=== PATIENT | male | born 1970 | race Caucasian/White ===

== ENCOUNTER 2019-03-24 19:42 | Observation (INO) ==
[2019-03-24 21:53] LABS: ALLEN TEST YES; BE 2.3 mmoll (-3.0-3.0); BLOOD TYPE ARTERIAL; HCO3-(ACT) 26.6 mmoll (20.0-26.0); METHB 1.4 % (0.0-1.5); O2HB 94.9 % (95.0-99.0); PCO2(98.6) 39 mmHg (35-45); PO2(98.6) 75 mmHg (60-100); SAMPLE BLOOD; SAO2 98.1 % (95.0-100.0); THB 16.5 g/dL (11.5-17.4); pH(98.6) 7.44 (7.35-7.45)
[2019-03-24 21:54] LABS: MODALITY ROOM AIR
--- NOTE | 2019-03-24 21:56 | Diag Imaging Result Doc PS360 ---
EXAM: CT HEAD W/O CONTRAST HISTORY: AMS TECHNIQUE: CT head without contrast COMPARISON: None. FINDINGS: No parenchymal hemorrhage. No epidural or subdural hematoma. No subarachnoid hemorrhage. Old right basal ganglia lacunar infarct versus cyst No mass identified on this noncontrasted exam. No hydrocephalus. No sinus opacification. IMPRESSION: No hemorrhage. No acute abnormality. This exam was performed using automated exposure control, adjustment of mA or kV according to patient size, and/or use of iterative reconstruction technique. Electronically signed by Aleksey Beckwith 03/24/2019 9:54 PM
[2019-03-24 22:02] LABS: AGAP 13; ALB/GLOB RATIO 1.7; ALBUMIN 4.8 g/dL (3.5-5.0); ALKALINE PHOSPHATASE 72 U/L (32-122); BUN 15 mg/dL (8-22); CALCIUM 9.7 mg/dL (8.8-10.2); CHLORIDE 98 mmol/L (98-107); COSMO 279; CREATININE 0.7 mg/dL (0.7-1.2); ESTIMATED GFR > 60; GLUCOSE 180 mg/dL (70-104); GOT 23 U/L (10-34); GPT 24 U/L (10-44); SODIUM 137 mmol/L (136-145); TCO2 26 mmol/L (25-35); TOTAL BILIRUBIN 0.68 mg/dL (0.20-1.00); TOTAL PROTEIN 7.6 g/dL (6.3-8.3)
[2019-03-24 22:30] LABS: BASO# 0.04 X1000 (0.0-0.2); BASO% 0.6 % (0.0-0.8); EOS# 0.16 X1000 (0.0-0.7); EOS% 2.4 % (0.0-10.0); HEMATOCRIT 47.1 % (42.0-52.0); HEMOGLOBIN 16.6 g/dL (14.0-18.0); LYMPH# 2.26 X1000 (1.2-3.4); LYMPH% 33.4 % (20.5-51.1); MCH 26.3 PG (27-31); MCHC 35.2 g/dL (33-37); MCV 74.6 FL (81-99); MONO# 0.85 X1000 (0.11-0.59); MONO% 12.6 % (1.7-9.3); MPV 10.7 FL (7.4-10.4); NEUT# 3.46 X1000 (1.4-6.5); PLT 168 X1000 (130-400); RBC 6.31 XMIL (4.7-6.1); RDW 13.4 % (11.5-14.5); WBC 6.77 X1000 (4.8-10.8)
[2019-03-24 22:37] LABS: URINE SOURCE CLEAN CATCH
[2019-03-24 22:41] LABS: BILIRUBIN URINE NEGATIVE (NEGATIVE); BLOOD URINE NEGATIVE (NEGATIVE); COLOR YELLOW; GLUCOSE URINE TRACE mg/dL (NEGATIVE); KETONE URINE 40 mg/dL (NEGATIVE); LEUKOCYTES URINE SMALL (NEGATIVE); NITRITE URINE NEGATIVE (NEGATIVE); PROTEIN URINE NEGATIVE (NEGATIVE); SP GRAVITY URINE 1.019; TURBIDITY URINE CLEAR (CLEAR); UROBILINOGEN URINE NORMAL (NORMAL)
[2019-03-24 22:42] LABS: UR EPITHELIAL CELLS <10 /HPF (<10); URINE BACTERIA NEGATIVE /HPF; URINE RBC <10 /HPF (<10)
[2019-03-24 22:59] LABS: UR AMPHETAMINES QUAL NONE DETECTED (NONE DETECT); UR BARBITUATES QUAL NONE DETECTED (NONE DETECT); UR BENZODIAZEPIN QUAL NONE DETECTED (NONE DETECT); UR CANNABINOIDS QUAL NONE DETECTED (NONE DETECT); UR COCAINE QUAL NONE DETECTED (NONE DETECT); UR METHADONE QUAL NONE DETECTED (NONE DETECT); UR OPIATES QUAL NONE DETECTED (NONE DETECT); UR OXYCODONE QUAL NONE DETECTED (NONE DETECT); UR PCP QUAL NONE DETECTED (NONE DETECT)
[2019-03-24] MEDS ORDERED: TYLENOL PO ONE (23:42)
--- NOTE | 2019-03-25 01:30 | PROVIDER DOCUMENTATION ---
This chart was entered by Leslie Bradshaw Scribe, acting as scribe for Juliana Paredes MD. HPI-Chest Pain - General Chief Complaint: Chest Pain Stated Complaint: CHEST PAIN/HISTORY OF CHF Time Seen by Provider: 03/24/19 20:20 Source: patient Allergies/Adverse Reactions: Patient Allergies Allergy/AdvReac Type Severity Reaction Status Date / Time CHERELLE Inhibitors Allergy Severe ANAPHYLAXIS Verified 01/16/17 13:46 Home Medications: Home Medication List Medication Instructions Recorded Confirmed Last Taken Type Carvedilol [Coreg] 50 mg PO BID 09/14/13 03/24/19 01/18/17 08:00 History 50 Furosemide [Lasix] 40 mg PO BID PRN 09/14/13 01/18/17 Unknown History Metformin [Glucophage] 1,000 mg PO BID CC 09/14/13 03/24/19 01/17/17 20:00 Hist ory 500 [place]-3 Fatty Acids [Fish Oil] 2,000 mg PO DAILY 09/14/13 03/24/19 01/17/17 20:00 History 2000 Omeprazole [Prilosec] 20 mg PO DAILY 09/14/13 03/24/19 01/17/17 20:00 History 20 Simvastatin [Zocor] 20 mg PO DAILY 09/14/13 01/18/17 01/17/17 20:00 History 20 Valsartan/Hydrochlorothiazide 1 each PO DAILY 09/14/13 03/24/19 01/17/17 08:00 History [Diovan Hct 160-12.5 mg Tab] 1 Losartan/Hydrochlorothiazide 1 each PO QAM #30 tablet 04/10/16 03/24/19 Unknown Rx [Hyzaar 100/25 Tablet] Dapagliflozin Propanediol [Farxiga] 10 mg PO DAILY 01/16/17 01/18/17 01/17/17 08:00 History 10 Multivitamin with Minerals 1 each PO DAILY 01/16/17 03/24/19 01/17/17 08:00 History [Multiple Vitamin] 1 Paroxetine [Paxil] 20 mg PO DAILY 01/16/17 01/18/17 01/17/17 08:00 History 20 Hydrocodone/Acetaminophen [[place] 1 tab PO Q4H PRN PRN 01/18/17 01/18/17 01/17/17 17:00 History 10-325 Tablet] 1 Guaifenesin/Codeine [Robitussin-AC] 5 ml PO Q4H PRN 7 Days #1 [facility] [place]/25/17 Unknown Rx Aspirin 325 mg PO DAILY 03/24/19 03/24/19 Unknown History Glipizide [Glucotrol] 10 mg PO BID 03/24/19 03/24/19 Unknown History Lovastatin 40 mg PO DAILY 03/24/19 03/24/19 Unknown History - History of Present Illness-CP Nature of Presenting Problem: pt is a 48 yr old male presenting with complaint of elevated blood pressure, substernal chest pain, dizziness, shortness of breath and headache. pt reports he began with pounding headache this afternoon, checked blood pressure and noted it was elevated. pt rested/relaxed and began having chest pain, shortness of breath, blood pressure more elevated when checked. pt denies nausea/vomiting. pt does report recent (2weeks) diet and med change,pt on strict 800 calorie and low carb diet and also now taking Glipizide along with his Metformin and BP medications. pt also reports 7/8lb weight gain in 24hrs Location: reports: substernal Chest Pain Radiation: reports: no radiation Quality of Pain: reports: pressure Severity in ED: mild Onset/Duration: this afternoon Timing: intermittent Context/Activities at Onset: reports: light activity Modifying Factors: improves with: nothing Associated Symptoms: reports: dizziness, fatigue, shortness of breath. denies: nausea, vomiting Nitro Today/Relief: no nitro taken today Aspirin Treatment Today: 325 mg x 1, provided at home Similar Symptoms Previously?: Yes Recently Seen Here or By Another Healthcare Provider: Yes Review of Systems - Adult - REVIEW OF SYSTEMS - ADULT Constitutional: reports: fatique Eyes: denies: blurred vision, double vision Ears, Nose, Mouth & Throat: reports: ear pain (throbbing). denies: sinus problem, throat pain Cardiovascular: reports: chest pain, palpitations (hx of PVCs). denies: syncope Respiratory: reports: shortness of breath. denies: cough Gastrointestinal: denies: abdominal pain, nausea, vomiting Genitourinary: denies: dysuria, frequency, flank pain Musculoskeletal: denies: back pain, joint pain, neck pain Integumentary: reports: no symptoms reported Neurological: reports: dizziness/vertigo, headache/migraines. denies: numbness, slurred speech, syncope, tremors Psychiatric: reports: no symptoms reported Endocrine: reports: no symptoms reported Hematologic/Lymphatic: reports: no symptoms reported Allergic/Immunologic: reports: no symptoms reported All Other Systems: Reviewed and Negative Past History - Adult - PAST MEDICAL HISTORY-ADULT Review of Records: reports: Old Records Reviewed, Nursing Assessment Review, Medications Reviewed, Social history reviewed & non-contributory. Major Childhood Illnesses: reports: denies history Cardiovascular: reports: CHF, HTN, hyperlipidemia Respiratory: reports: asthma, sleep apnea Gastrointestinal: reports: GERD Obstetrical/Gynecological: reports: denies history Genitourinary: reports: denies history Musculoskeletal: reports: denies history Neurological: reports: denies history Endocrine/Immune: reports: Diabetes Other Conditions: reports: denies history - PRIOR SURGERIES/PROCEDURES Surgical/Procedure History: reports: none - IMMUNIZATION STATUS Childhood Immunizations: UTD Flu Vaccine: See Nurse Assessment - FAMILY HISTORY Family History: reviewed, not pertinent - SOCIAL HISTORY Smoking: denies Substance Use: denies Living Situation: family Physical Exam-General - PHYSICAL EXAM-ADULT Initial Vital Signs Reviewed: Yes - CONSTITUTIONAL General Appearance: alert, no apparent distress, obese - EYES Eyes: PERRL/EOMI - HEAD, EARS, NOSE, MOUTH & THROAT HENMT: normocephalic/atraumatic, moist mucous membranes, normal ENT inspection - NECK Neck: non-tender, full range of motion, supple, normal inspection - RESPIRATORY Respiratory: chest non-tender, lungs clear, normal breath sounds, no respiratory distress, no accessory muscle use - CARDIOVASCULAR Cardiovascular: normal peripheral pulses, regular rate, rhythm, no edema - GASTROINTESTINAL (ABDOMEN) Abdominal Exam: normal bowel sounds, non tender, soft - LYMPHATIC Lymphatic: no adenopathy - MUSCULOSKELETAL Back Exam: normal inspection, no CVA tenderness, no vertebral tenderness Extremity: normal range of motion, non-tender, normal gait, normal inspection - SKIN Integumentary: normal color, normal turgor, warm/dry - NEUROLOGIC Neurologic: grossly normal - PSYCHIATRIC Psych/Mental Status: normal mood/affect Progress - PLAN OF CARE/RESULTS Progress/Plan/Lab Results: Vital Signs - 8 hr 03/24/19 23:33 03/25/19 00:03 03/25/19 00:33 Pulse Rate 87 88 87 Respiratory Rate 13 24 16 Blood Pressure 150/114 147/106 151/102 O2 Sat by Pulse Oximetry 95 94 L 96 03/25/19 01:03 03/25/19 01:33 03/25/19 01:40 Pulse Rate 88 84 83 Respiratory Rate 23 19 17 Blood Pressure 179/116 143/108 O2 Sat by Pulse Oximetry 96 93 L 96 03/25/19 02:03 03/25/19 02:33 03/25/19 03:03 Pulse Rate 75 83 76 Respiratory Rate 15 17 20 Blood Pressure 146/109 156/107 151/111 O2 Sat by Pulse Oximetry 95 96 94 L 03/25/19 03:30 03/25/19 04:00 03/25/19 04:03 Pulse Rate 85 81 80 Respiratory Rate 15 22 18 Blood Pressure 166/97 170/99 O2 Sat by Pulse Oximetry 97 95 96 03/25/19 04:33 Pulse Rate 85 Respiratory Rate 18 Blood Pressure 155/95 O2 Sat by Pulse Oximetry 94 L Laboratory Results - last 24 hr 03/24/19 03/24/19 03/24/19 20:36 20:36 20:36 WBC 6.77 RBC 6.31 H Hgb 16.6 Hct 47.1 MCV 74.6 L MCH 26.3 L MCHC 35.2 RDW Std Deviation 13.4 Plt Count 168 MPV 10.7 H Immature Gran % (Auto) 0.0 Neut % (Auto) 51.0 Lymph % (Auto) 33.4 [place] % (Auto) 12.6 H Eos % (Auto) 2.4 Baso % (Auto) 0.6 Immature Gran # (Auto) 0.00 Neut # (Auto) 3.46 Lymph # (Auto) 2.26 [place] # (Auto) 0.85 H Eos # (Auto) 0.16 Baso # (Auto) 0.04 Specimen Type Sample Site pH pCO2 pO2 HCO3 Base Excess Oxyhemoglobin ABG O2 Sat (Calculated) ABG O2 Saturation ABG Carboxyhemoglobin ABG Methemoglobin Yoel Test A-a O2 Difference Total Hemoglobin Lactate Blood Gas Modality FiO2 % Sodium 137 Potassium 4.0 Chloride 98 Carbon Dioxide 26 Anion Gap 13 BUN 15 Creatinine 0.7 Estimated GFR/1.73 m2 > 60 BUN/Creatinine Ratio 21 Glucose 180 H POC Glucose Calculated Osmolality 279 Calcium 9.7 Total Bilirubin 0.68 AST 23 ALT 24 Alkaline Phosphatase 72 Troponin T < 0.010 Idr-C-Xavqefsrgly Pept Total Protein 7.6 Albumin 4.8 Globulin 2.8 Albumin/Globulin Ratio 1.7 Urine Source Urine Color Urine Turbidity Urine pH Ur Specific [place] Urine Protein Ur Glucose (Stick) Ur Ketones (Stick) Urine Blood Urine Nitrite Urine Bilirubin Urobilinogen Dipstick Urine Leukocytes Urine WBC (Auto) Urine RBC (Auto) U Epithel Cells (Auto) Urine Bacteria (Auto) Urine Opiates Screen Ur Oxycodone Screen Ur Methadone, Qual Ur Barbiturates Screen Ur Phencyclidine Scrn Ur Amphetamines Screen U Benzodiazepines Scrn Urine Cocaine Screen U Cannabinoids Screen 03/24/19 03/24/19 03/24/19 20:36 20:55 21:29 WBC RBC Hgb Hct MCV MCH MCHC RDW Std Deviation Plt Count MPV Immature Gran % (Auto) Neut % (Auto) Lymph % (Auto) [place] % (Auto) Eos % (Auto) Baso % (Auto) Immature Gran # (Auto) Neut # (Auto) Lymph # (Auto) [place] # (Auto) Eos # (Auto) Baso # (Auto) Specimen Type Sample Site pH pCO2 pO2 HCO3 Base Excess Oxyhemoglobin ABG O2 Sat (Calculated) ABG O2 Saturation ABG Carboxyhemoglobin ABG Methemoglobin Yoel Test A-a O2 Difference Total Hemoglobin Lactate Blood Gas Modality FiO2 % Sodium Potassium Chloride Carbon Dioxide Anion Gap BUN Creatinine Estimated GFR/1.73 m2 BUN/Creatinine Ratio Glucose POC Glucose 165 H 160 H Calculated Osmolality Calcium Total Bilirubin AST ALT Alkaline Phosphatase Troponin T Mhg-S-Yjrjgavsjrv Pept 42 Total Protein Albumin Globulin Albumin/Globulin Ratio Urine Source Urine Color Urine Turbidity Urine pH Ur Specific [place] Urine Protein Ur Glucose (Stick) Ur Ketones (Stick) Urine Blood Urine Nitrite Urine Bilirubin Urobilinogen Dipstick Urine Leukocytes Urine WBC (Auto) Urine RBC (Auto) U Epithel Cells (Auto) Urine Bacteria (Auto) Urine Opiates Screen Ur Oxycodone Screen Ur Methadone, Qual Ur Barbiturates Screen Ur Phencyclidine Scrn Ur Amphetamines Screen U Benzodiazepines Scrn Urine Cocaine Screen U Cannabinoids Screen 03/24/19 03/24/19 03/24/19 21:32 22:25 22:25 WBC RBC Hgb Hct MCV MCH MCHC RDW Std Deviation Plt Count MPV Immature Gran % (Auto) Neut % (Auto) Lymph % (Auto) [place] % (Auto) Eos % (Auto) Baso % (Auto) Immature Gran # (Auto) Neut # (Auto) Lymph # (Auto) [place] # (Auto) Eos # (Auto) Baso # (Auto) Specimen Type ARTERIAL Sample Site R RADIAL pH 7.44 pCO2 39 pO2 75 HCO3 26.6 H Base Excess 2.3 Oxyhemoglobin 94.9 L ABG O2 Sat (Calculated) 22.0 ABG O2 Saturation 98.1 ABG Carboxyhemoglobin 1.90 ABG Methemoglobin 1.4 Yoel Test YES A-a O2 Difference 26.0 Total Hemoglobin 16.5 Lactate 1.60 Blood Gas Modality ROOM AIR FiO2 % 21.0 Sodium Potassium Chloride Carbon Dioxide Anion Gap BUN Creatinine Estimated GFR/1.73 m2 BUN/Creatinine Ratio Glucose POC Glucose Calculated Osmolality Calcium Total Bilirubin AST ALT Alkaline Phosphatase Troponin T Ymv-Z-Kticfbzuhop Pept Total Protein Albumin Globulin Albumin/Globulin Ratio Urine Source CLEAN CATCH Urine Color YELLOW Urine Turbidity CLEAR Urine pH 5.0 Ur Specific [place] 1.019 Urine Protein NEGATIVE Ur Glucose (Stick) TRACE Ur Ketones (Stick) 40 A Urine Blood NEGATIVE Urine Nitrite NEGATIVE Urine Bilirubin NEGATIVE Urobilinogen Dipstick NORMAL Urine Leukocytes SMALL A Urine WBC (Auto) 10-20 A Urine RBC (Auto) <10 U Epithel Cells (Auto) <10 Urine Bacteria (Auto) NEGATIVE Urine Opiates Screen NONE DETECTED Ur Oxycodone Screen NONE DETECTED Ur Methadone, Qual NONE DETECTED Ur Barbiturates Screen NONE DETECTED Ur Phencyclidine Scrn NONE DETECTED Ur Amphetamines Screen NONE DETECTED U Benzodiazepines Scrn NONE DETECTED Urine Cocaine Screen NONE DETECTED U Cannabinoids Screen NONE DETECTED Orders Category Date Time Status Admit - [facility] Routine AdmDCTranf 03/25/19 02:42 Active Activity - Up with Assistance ORDERED Care 03/25/19 02:42 Active Apply Mechanical Device [QM] ORDERED Care 03/25/19 02:42 Active FSBS/Accucheck Result AC + HS Care 03/25/19 02:42 Active Intake and Output-Strict ORDERED Care 03/25/19 02:42 Active Vital Signs Order Q 8-HR ASSESS Care 03/25/19 02:42 Active Z-Document. for Tele Applied ORDERED Care 03/25/19 02:42 Active Diabetic Diet Diet 03/25/19 02:[address] HEAD W/O CONTRAST [CT] Stat Exams 03/24/19 21:32 Completed MRI BRAIN W/WO CONTRAST [MRI] Routine Exams 03/25/19 02:42 Ordered ABG [RESP] Routine Lab 03/24/19 21:32 Completed BASIC METABOLIC PANEL [CHEM] Routine Lab 03/26/19 06:00 Ordered BNP [PRO B-NATRIURETIC PEPTIDE] Stat Lab 03/24/19 20:36 Completed CBC WITH DIFF [HEME] Routine Lab 03/26/19 06:00 Ordered CBC WITH ELECTRONIC DIFF [HEME] Stat Lab 03/24/19 20:36 Completed COMPREHENSIVE METABOLIC PANEL [CHEM] Stat Lab 03/24/19 20:36 Completed TROPONIN T Stat Lab 03/24/19 20:36 Completed TSH Routine Lab 03/26/19 06:00 Ordered URINALYSIS W/POSS RFLX CULT [URINALYSIS] Stat Lab 03/24/19 22:25 Completed URINE CULTURE [RM] Routine Lab 03/24/19 22:53 Received URINE DRUG SCREEN Stat Lab 03/24/19 22:25 Completed Acetaminophen [Tylenol] Med 03/24/19 23:42 Discontinued 1,000 mg PO NOW ONE Acetaminophen [Tylenol] Med 03/25/19 02:42 Active 650 mg PO Q6H PRN PRN Albuterol 2.5MG/Ipratrop 0.5MG [Duoneb (A & A)] Med 03/25/19 02:42 Active 3 ml INH Q4H PRN PRN Aspirin Med 03/25/19 09:00 Active 325 mg PO DAILY Carvedilol [Coreg] Med 03/25/19 09:00 Active 50 mg PO BID Insulin Human Regular [Humulin R] Med 03/25/19 07:00 Active See Protocol SUBQ 0700,1100,1600,2100 LOVAstatin [Mevacor] Med 03/25/19 09:00 Active 40 mg PO DAILY Omeprazole [Prilosec] Med 03/25/19 07:00 Active 20 mg PO DAILY@0700 Ondansetron [Zofran] Med 03/25/19 02:42 Active 4 mg IV Q4H PRN PRN Valsartan [Diovan] Med 03/25/19 09:00 Active 160 mg PO DAILY Aerosol Treatments Routine Oth 03/25/19 02:42 Completed Aerosol Treatments Stat Oth 03/25/19 02:42 Completed Oxygen Device Routine Oth 03/25/19 02:42 Completed Telemetry [OM.EQ] Routine Oth 03/25/19 02:42 Active Carotid Ultrasound Routine Ther 03/25/19 02:42 Ordered Transfer/Admit Order [TRANSFER] Routine Transfer 03/25/19 01:25 Completed WHile in the ED patient had an acute episode where he became diaphoretic and slow to respond to questioning. Glucose at this time was 160. Taken to CT Head which was negative. Unknown cause of this. COuld be vasovagal syncope although cannot rule out TIA with his risk factors. Also with his concerning chest pain and risk factors. I feel it is likely related to his new ketogenic diet and new lo blood sugars as he states that he normally lives in the 400s. Spoke to patient about OBS admission and he agreed. SPoke to Dr Holly who accepted patient for admission. Further orders to be placed by their team. Result Diagrams: 03/24/19 20:36 03/24/19 20:36 - EKG 1 Time of EKG reading by physician:: 19:53 EKG Read and Signed by:: Juliana Paredes EKG Interpretation (*Must complete 3 of following elements*): Abnormal (pvcs) Rate: 79 Rhythm: sinus with PVCs [place]: normal QRS: normal RI Interval: normal ST Wave: normal - CT/MRI 1 CT Study: Head Impression: Normal ( EXAM: CT HEAD W/O CONTRAST HISTORY: AMS TECHNIQUE: CT head without contrast COMPARISON: None. FINDINGS: No parenchymal hemorrhage. No epidural or subdural hematoma. No subarachnoid hemorrhage. Old right basal ganglia lacunar infarct versus cyst No mass identified on this noncontrasted exam. No hydrocephalus. No sinus opacification. IMPRESSION: No hemorrhage. No acute abnormality. This exam was performed using automated exposure control, adjustment of mA or kV according to patient size, and/or use of iterative reconstruction technique. Electronically signed by Aleksey Beckwith 03/24/2019 9:54 PM 03/24/192153 Interpreting Physician: Aleksey Beckwith MD Dictated Date/Time: 03/24/192151 cc: Juliana Paredes MD; Pola Betts Jr, MD) Comparison with other Films: no prior study Departure - Departure Date of Disposition Decision: 03/25/19 Time of Disposition Decision: 01:10 DIAGNOSIS: Altered mental status, Headache, Hypertension, Chest pain Disposition: ADMITTED INPATIENT 09 Certified Medical Emergency: Emergent Condition: Stable - Critical Care Note This patient required my direct & personal management of CC.: No Attestation - Physician/ JUAN JOSE Attestation Patient care was provided by Advanced Practice Provider:: No The physician spent face to face time with patient:: Yes Advanced Practice Provider documentation review:: Supervising physician onsite and consulted in the evaluation and care of this patient. The physician did have a face to face encounter with the patient. This chart was documented by the indicated scribe, (Leslie Bradshaw Scribe) and accurately reflects the services I performed and decisions made by me, Juliana Paredes MD, as attested by the provider's signature.
--- NOTE | 2019-03-25 02:00 | HISTORY AND PHYSICAL ---
PRIMARY CARE PHYSICIAN: Dr. Betts. CHIEF COMPLAINT: Headache, difficulty getting his words out. HISTORY OF PRESENTING ILLNESS: A 48-year-old male with a history of hypertension, diabetes mellitus type 2, hyperlipidemia, who had presented to emergency department with 1 day of having a persistent headache. He states that he was also having difficulty getting his words out and he sort of zoned out at times. The patient states that he recently started ketogenic diet about 2 weeks ago and normally his blood sugars were around 400, now it is 160. He states that his blood pressure also had been elevated at home, around 180/160. The patient was evaluated in the emergency department and, due to his persistent symptoms of headache and history of difficulty getting his words out, it was thought that we will place him for observation for further evaluation and management. At the time of my examination, patient denied any fever, chills, chest pain, hemoptysis, melena, or any weight changes, but complained of headache and difficulty getting his words out, and also shortness of breath at times. The patient, apparently, had been diagnosed with asthma or so and was put on bronchodilators, however, he ran out of his prescription. PAST MEDICAL HISTORY: Includes hypertension, diabetes mellitus type 2, hyperlipidemia, CHF. PAST SURGICAL HISTORY: None. ALLERGIES: CHERELLE inhibitor. CURRENT MEDICATIONS: Include aspirin 325 mg p.o. daily, Coreg 50 mg p.o. b.i.d., Lasix 20 mg p.o. b.i.d., glipizide 10 mg p.o. b.i.d., [place] 10 one p.o. q.4 hours, Hyzaar 100/25, one p.o. q.a.m., lovastatin 40 mg p.o. daily, metformin 1000 mg p.o. b.i.d., paroxetine 20 mg p.o. daily, simvastatin 20 mg p.o. daily. SOCIAL HISTORY: He is a former smoker. No history of alcohol or illicit drug use. FAMILY HISTORY: No history of coronary artery disease. REVIEW OF SYSTEMS: Fourteen-point review of systems is as in HPI. Other systems negative. PHYSICAL EXAMINATION: GENERAL: Cooperative, friendly male. He is resting more comfortably now. VITAL SIGNS: Temperature 98.7 degrees, pulse 74, respirations 20, blood pressure 179/120. HEENT: Atraumatic, normocephalic. Extraocular movements intact. PERRLA. NECK: No masses. CHEST: Clear to auscultation. CARDIOVASCULAR: Regular rate and rhythm. ABDOMEN: Soft. Positive bowel sounds. Obese. EXTREMITIES: Trace edema. NEUROLOGIC: He is awake, alert, oriented x3. Speech is intact. Strength 5/5 all extremities. SKIN: Warm. GENITOURINARY: No bladder distention. LABORATORIES AND STUDIES: WBC 6.77, hemoglobin 16.6, hematocrit 47.1, platelets 168,000. Sodium 137, potassium 4.0, chloride 98, CO2 is 26, BUN is 15, creatinine 0.7. Glucose is 180. Head CT, no hemorrhage, no acute abnormality. ASSESSMENT: A 48-year-old male with a history of hypertension, diabetes mellitus type 2, hyperlipidemia, who presented to emergency department with 1-day history of having persistent headache, and also having difficulty getting his words out. He states that he sort of zoned out or so. The patient also was complaining of not feeling well, and due to his presenting symptoms, we will place the patient for observation for further evaluation and management. 1. Suspected transient ischemic attack. We will need to rule out cerebrovascular accident. 2. Persistent headache. 3. Bronchospasm/asthma. 4. Hypertension. 5. Diabetes mellitus type 2. PLAN: 1. We will admit patient to medical floor with telemetry. 2. We will obtain an MRI of the brain with and without. 3. We will check carotid duplex. 4. We will give patient Tylenol for his headache. 5. We will start patient on albuterol inhaler p.r.n. 6. We will monitor blood pressure closely and resume antihypertensive agent. 7. Monitor blood glucose closely and continue patient on sliding scale insulin regimen. 8. We will put patient on DVT prophylaxis with SCDs. 9. We will continue to follow and reassess, make further recommendations based on patient's clinical course. cc: Ariel Holly MD
[2019-03-25] MEDS ORDERED: ZOFRAN IV PRN (02:42)
[2019-03-25] MEDS ORDERED: DUONEB (A & A) INH PRN (02:42)
[2019-03-25] MEDS ORDERED: TYLENOL PO PRN (02:42)
[2019-03-25] MEDS: HUMULIN R SUBQ SCH ×3 (06:13→16:50)
[2019-03-25] MEDS ORDERED: PRILOSEC PO SCH (07:00)
--- NOTE | 2019-03-25 08:06 | EKG Report ---
Test Performed on : 03/24/2019 7:48:10 PM Test Reason : ED. NO EKG ORDER FOR MUSE Blood Pressure : / mmHG Vent. Rate : 079 BPM Atrial Rate : 079 BPM P-R Int : 160 ms QRS Dur : 088 ms QT Int : 376 ms P-R-T Axes : -19 027 018 degrees QTc Int : 431 ms Sinus rhythm. with frequent premature ventricular complexes. Possible Anterior infarct , age undetermined Abnormal ECG When compared with ECG of 10-APR-2016 18:41, premature ventricular complexes. are now present Unconfirmed Result
[2019-03-25] MEDS ORDERED: COREG PO SCH (09:00)
[2019-03-25] MEDS ORDERED: HYDROCHLOROTHIAZIDE PO SCH (09:00)
[2019-03-25] MEDS ORDERED: ASPIRIN PO SCH (09:00)
[2019-03-25] MEDS ORDERED: MEVACOR PO SCH (09:00)
[2019-03-25] MEDS ORDERED: DIOVAN PO SCH (09:00)
--- NOTE | 2019-03-25 10:17 | Diag Imaging Result Doc PS360 ---
MRI BRAIN W/WO CONTRAST - 03/25/2019 INDICATION: TIA COMPARISON: Head CT 03/24/2019 FINDINGS: There is no area of restricted diffusion. The ventricles and sulci are normal in size and contour. No intracranial mass or hemorrhage. No area of abnormal contrast enhancement. Midline structures including the optic chiasm and pituitary are normal. IMPRESSION: Negative exam. Electronically signed by Pola Diaz 03/25/2019 10:15 AM
[2019-03-25 16:12] VITALS: BP 122/74
--- NOTE | 2019-03-25 19:04 | DISCHARGE SUMMARY ---
ADMISSION DATE: 03/25/2019 DISCHARGE DATE: HISTORY OF PRESENT ILLNESS: A 48-year-old with history of hypertension, diabetes mellitus type 2, hyperlipidemia who presented to the emergency room with 1 day of having persistent headache. It felt like he was ringing in both ears, felt like he had difficulty getting words out. He felt like he was kind of zoned out. Concerned about his blood pressure being elevated. He was checking his blood sugars, were running around 400, but now around 160. States that blood pressure has been elevated at home, 180/160 by his report. Evaluated in the emergency room. I did not find a focal deficit. He denied fever or chills, chest pain, hemoptysis, melena. No weight change but was having difficulty for a spell with getting words out. The patient apparently been diagnosed with asthma and was put on some bronchodilators. PAST MEDICAL HISTORY: Includes: 1. Hypertension. 2. Diabetes mellitus, type 2. 3. Hyperlipidemia. 4. Congestive heart failure. ALLERGIES: CHERELLE inhibitor. ADMISSION DIAGNOSES: 1. Questionable transient ischemic event. 2. Persistent headache. 3. Diabetes mellitus, type 2. ADMISSION LABORATORY DATA: White count was 6777, hematocrit 47, platelet count 168,000. Blood sugars 167, 218, 236. His white count was 6770, hematocrit 47, platelet count 168,000. Sodium 137, potassium 4.0, chloride 98, BUN 15, creatinine 0.7. Liver enzymes look good. Blood sugars remained well controlled. His blood pressures remained well controlled as well with the last 2 numbers 124/69 and 122/74. He had an MRI done of his head, a negative exam, and was wanting to go home so we will plan to discharge him home. Aspirin 325 mg, let him take that once a day, he is on Coreg 50 mg b.i.d., hydrochlorothiazide 12.5 mg a day, Mevacor 40 mg a day, and Diovan I think 160 mg a day. Right now they were holding his glipizide and holding his metformin, so I think he ought to continue to hold those. The Farxiga 10 mg a day, I think he can hold that as well. The Coreg was at 50 mg twice a day. He is taking omega-3 fatty acids. I think he can continue that. Prilosec 20 mg a day. Paxil 20 mg a day. Zocor 20 mg a day. he was on the Diovan HCT 160/4.5 once a day. He had no focal neurologic deficits. Blood sugars look under good control so will plan to discharge him. cc: Yoel Duran MD MTDD
--- NOTE | 2019-03-26 09:11 | Carotid Study ---
DATE: 03/25/2019 PROCEDURE: Bilateral duplex and color flow imaging of the carotid arteries performed using a GE Vivid E9 Ultrasound System with a 9L-D transducer. REFERRING PHYSICIAN: Ariel Holly MD. A 48-year-old male. INTERPRETING PHYSICIAN: Cecilia Raya MD. TECH: Kristine Joyner RVT. INDICATIONS: Transient ischemic attack. OBSERVED DATA RIGHT LEFT Brachial Blood Pressure Carotid Pulse Bruits: Carotid/Sub DIAGRAM OF ULTRASOUND IMAGING R L RIGHT INT EXT INT EXT LEFT Adebayo (cm/s) Adebayo (cm/s) Subclavian 150/2 Subclavian 98/0 CCA Proximal 82/17 CCA Proximal 70/15 CCA Distal 67/20 CCA Distal 50/13 Bulb 57/26 Bulb 36/9 ICA Proximal 45/15 ICA Proximal 47/18 ICA Mid 42/19 ICA Mid 59/29 ICA Distal 80/34 ICA Distal 66/31 ECA 71/9 ECA 77/8 Vertebral 36/13 Forward flow Vertebral 29/8 ICA/CCA Ratio 0.97 ICA/CCA Ratio 0.95 % Stenosis 0-39% % Stenosis 0-39% PHYSICIAN INTERPRETATION: Despite the patient's symptoms, this appears to be a normal bilateral carotid arterial study. cc: MD Ariel Cannon MD
== END 2019-03-25 18:32 | disposition home or self-care (01) ==
LOC: 3N 19:42 → ED 19:42
PROVIDERS: ATTEND Emergency Medicine
CPT/HCPCS: 70450; 70553; 80053; 80101; 80301; 80307; 80324; 80345; 80346; 80353; 80358; 80361; 80365; 81001; 82805; 82948; 83880; 83992; 84484; 85025; 87088; 93005; 93880; 94640; A9270; A9579; G0431; G0434; G0479; G0480; XXXXX